=== PATIENT | male | born 1930 | race Hispanic/Latino ===

== ENCOUNTER 2017-11-13 06:12 | Day surgery (SDC) | payer MEDICARE, OTHER ==
[2017-11-12 11:48] VITALS: BMI 34.3
[2017-11-13 06:49] VITALS: RESP 18
[2017-11-13] MEDS ORDERED: Phenylephrine 10 mg/ml Inj ONE (06:53)
[2017-11-13] MEDS ORDERED: Midazolam 2 MG/2 ML VIAL ONE ×2 (06:53→07:12)
[2017-11-13] MEDS ORDERED: Lidocaine 2% Inj (20ml) ONE (06:53)
[2017-11-13] MEDS ORDERED: Iodixanol 320 MG/ML 100 ML BOTTLE IV ONE (06:54)
[2017-11-13] MEDS ORDERED: Iohexol 350mgl/ml 50 ML ONE (06:54)
[2017-11-13] MEDS ORDERED: Iodixanol 320 MG/ML 200 ML BOTTLE IV ONE (06:54)
[2017-11-13] MEDS ORDERED: Nitroglycerin 50mg in D5W 0 MG/0 ML BOTTLE IV ONE (06:55)
[2017-11-13 06:56] LABS: BASO # 0.01 K/mm3 (0.0-2.0); BASO % 0.2 % (0.0-3.0); EOS # 0.3 (0.0-0.7); EOS % 6.6 % (1.5-5.0); GRAN # 2.34 (1.4-6.5); GRAN % 54.8 % (50.0-68.0); HEMOGLOBIN 13.8 g/dL (14.0-18.0); LYMPH # 1.2 (1.2-3.4); LYMPH % 28.3 % (22.0-35.0); MEAN CELL VOLUME 93.9 fl (80.0-105.0); MEAN CORPUSCULAR HEMOGLOBIN 32.2 pg (25.0-35.0); MEAN CORPUSCULAR HGB CONC 34.2 g/dl (31.0-37.0); MEAN PLATELET VOLUME 9.7 fl (7.0-11.0); MONO # 0.4 (0.1-0.6); MONO % 10.1 % (1.0-6.0); RBC 4.29 10^6/uL (3.5-6.1); RED CELL DISTRIBUTION WIDTH 13.3 % (11.5-14.5); WHITE BLOOD COUNT 4.3 10^3/ul (4.5-11.0)
[2017-11-13 06:58] LABS: BLOOD UREA NITROGEN 24 mg/dL (7-21); CALCIUM 9.5 mg/dL (8.4-10.5); GFR AFRICAN-AMERICAN > 60; GFR NON-AFRICAN AMERICAN > 60
[2017-11-13] MEDS ORDERED: DiphenhydrAMINE 50 mg/ml Inj ONE (07:00)
[2017-11-13] MEDS ORDERED: Famotidine 20mg/50ml 20 MG/50 ML BAG IVPB ONE (07:00)
[2017-11-13 07:06] LABS: INR 1.04 (0.93-1.08); PARTIAL THROMBOPLASTIN TIME 29.1 Seconds (25.1-36.5)
[2017-11-13] MEDS ORDERED: Flumazenil 0.1 mg/ml Inj (5ml) IVP ONE (08:42)
[2017-11-13] MEDS ORDERED: Sodium Chloride 0.9% 1,000 ML IV SCH (08:45)
[2017-11-13 09:09] VITALS: TEMP 97.3
--- NOTE | 2017-11-13 09:45 | CARD ---
APPROVED REPORT EKG Measurement Heart [id number] <Conclusion> Electronic ventricular pacemaker: 100 % V. Paced No change
--- NOTE | 2017-11-13 10:40 | CARDCATH ---
PROCEDURE DATE: 11/13/2017 HISTORY: The patient is an a 87-year-old male, who presents with an abnormal stress test. 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 Because of this, cardiac catheterization was recommended. PROCEDURE: Left heart catheterization with coronary arteriography, supraaortic valvular injection were performed. There were no complications. The right femoral artery was cannulated with a 6-[place] sheath. I performed moderate sedation, which included the presence of an independent trained observer that assisted in monitoring the patient's level of consciousness and physiologic status. After administration of Versed and fentanyl, my intra service time was 15 minutes. Findings on catheterization include supraaortic valvular injection. There was no aortic insufficiency across the prosthetic aortic valve. His coronary anatomy revealed a right dominant circulation. The RCA which had undergone Rotablator revealed diffuse atherosclerosis without critical lesions with a patent stent. The right RCA was a dominant vessel. The left main artery was unremarkable. The LAD and diagonal vessels revealed intimal irregularities without critical lesions. The circumflex artery and obtuse marginal branches revealed intimal irregularities without critical lesions. Manual compression was used to close the femoral artery site. The patient tolerated the procedure well. In summary, the procedure revealed no aortic insufficiency across the prosthetic valve. 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 Given these findings, the patient's treatment will be continued medical therapy. His cardiac status is stable since his procedures. Mukul Ta MD
[2017-11-13 12:44] VITALS: O2SAT 97
[2017-11-13 15:03] VITALS: BP 136/70; PULSE 61
== END 2017-11-13 15:45 | disposition home or self-care (01) ==
LOC: CATH 06:12
PROVIDERS: ATTEND Internal Medicine Cardiovascular Disease
DX: I25.110 Atherosclerotic heart disease of native coronary artery with unstable angina pectoris (principal); I48.91 Unspecified atrial fibrillation
CPT/HCPCS: 36415; 80048; 82948; 85025; 85610; 85730; 86850; 86900; 93005; 93454; 99152; 99153; C1769; C2629; J1200; J1644; J2250; J2930; J3010; J7030; J7040; Q9966

== ENCOUNTER 2018-09-04 08:13 | Outpatient (CLI) | payer MEDICARE, OTHER | END 2018-09-04 08:14 | disposition home or self-care (01) | LOC: LAB 08:13 ==

== ENCOUNTER → 2018-12-07 | Outpatient (CLI) | payer MEDICARE, OTHER | LOC: CARDIO 12:57 ==